=== PATIENT | male | born 1970 | race Caucasian/White ===

== ENCOUNTER → 2022-04-13 10:09 | Outpatient (CLI) | payer BC, SELFPAY ==
--- NOTE | ~2022-04-13 | XR_ITS ---
EXAM: XR thoracic spine 3V DATE: 04/13/2022 10:34 HISTORY: Chronic back pain . COMPARISON: None available. FINDINGS: Exaggerated thoracic kyphosis Intact, uncomplicated posterior fusion hardware traversing ap proximately T2-T10. Vertebral body alignment intact. Mild anterior wedge deformity of T6 and T7, pres umed chronic. Multilevel mild disc space narrowing and marginal osteophytosis. No traumatic malalignm ent or fracture. Multiple bilateral calcified granulomas. IMPRESSION: Presumed chronic mild anterior wedge deformity at T6 and T7. Posterior T2-T10 hardware fu cindy. Reviewed, dictated and finalized at location K. IMPRESSION: Presumed chronic mild anterior wedge deformity at T6 and T7. [employer] ior T2-T10 hardware fusion.
--- NOTE | ~2022-04-13 | XR_ITS ---
EXAMINATION: XR lumbar spine 2-3V DATE: 04/13/2022 10:34 INDICATION: Chronic back pain TECHNIQUE: Anteroposterior and lateral views of the lumbar spine, and cone-down lateral view of the l umbosacral junction were obtained. COMPARISON: None. FINDINGS: Partially visualized instrumented posterior spinal fusion with bilateral vertical inderjit and laminar hugo k fixation beginning at T11 and extending beyond the cephalad margin of the [id number] which is at T9. 5 degrees lumbar levocurvature. Sagittal alignment is normal. Vertebral body heights are normal. Mild disc height loss at T9-T10, T10-T11 through T11-T12. Mild degenerative endplate changes without significant disc height loss at L2-L3, L3-L4 and L4-L5. Mild to moderate lower lumbar facet osteoart hritis. Sacral arches are intact. Mild left sacroiliac osteoarthritis. Small calcified nodules in the left lower lung zone consistent with old granulomatous disease. Linear orientation of 4 peripherally calcified likely gallstones in the right upper quadrant. IMPRESSION: 1. Mild lumbar levocurvature with mild lumbar and lower thoracic spondylosis. 2. Cholelithiasis. Reviewed, dictated and finalized at location B.
== END ==
PROVIDERS: PCP Physician Assistant; Visit Provider Physician Assistant
DX: M47.896 Other spondylosis, lumbar region (principal); M47.894 Other spondylosis, thoracic region; K80.20 Calculus of gallbladder without cholecystitis without obstruction; Z98.1 Arthrodesis status
CPT/HCPCS: 72072; 72100